=== PATIENT | female | born 1955 | race Caucasian/White ===

== ENCOUNTER 2016-08-23 09:16 | Outpatient (CLI) | payer OTHER | END 2016-08-23 09:17 | disposition home or self-care (01) | DX: I51.7 Cardiomegaly (principal) ==

== ENCOUNTER 2018-04-19 06:04 | Day surgery (SDC) | payer OTHER ==
[2018-04-19] MEDS ORDERED: LACTATED RINGERS 1,000 ML IV ONE (06:50)
[2018-04-19] MEDS ORDERED: fentaNYL 250 MCG/5 ML VIAL IVP ONE (07:30)
[2018-04-19] MEDS ORDERED: MIDAZOLAM 2 MG/2 ML VIAL IVP ONE (07:30)
[2018-04-19 08:26] VITALS: BP 129/90
== END 2018-04-19 06:05 | disposition home or self-care (01) ==
LOC: SDS 06:04
PROVIDERS: ATTEND Internal Medicine Gastroenterology
PROC: 0DJD8ZZ Inspection of Lower Intestinal Tract, Via Natural or Artificial Opening Endoscopic (ICD-10-PCS; principal; 2018-04-19 07:30)
DX: Z12.11 Encounter for screening for malignant neoplasm of colon (principal); Z86.010 Personal history of colon polyps; I10 Essential (primary) hypertension; E78.5 Hyperlipidemia, unspecified; J45.909 Unspecified asthma, uncomplicated; R06.83 Snoring; K21.9 Gastro-esophageal reflux disease without esophagitis; F32.9 Major depressive disorder, single episode, unspecified; R73.03 Prediabetes; E66.01 Morbid (severe) obesity due to excess calories; Z68.41 Body mass index [BMI] 40.0-44.9, adult; J30.9 Allergic rhinitis, unspecified; Z79.84 Long term (current) use of oral hypoglycemic drugs; Z79.82 Long term (current) use of aspirin; Z87.891 Personal history of nicotine dependence; Z86.73 Personal history of transient ischemic attack (TIA), and cerebral infarction without residual deficits
CPT/HCPCS: 45378; J3010; J7120

== ENCOUNTER 2018-08-10 16:59 | Emergency (ER) | payer OTHER ==
[2018-08-10 17:14] VITALS: BP 148/93
--- NOTE | 2018-08-10 18:01 | XRAY Report ---
Reason: right wrist injury Procedure Date: 08/10/2018 Accession Number: [id number] / [id number] Procedure: XR - Wrist 3 View RT CPT Code: FULL RESULT: EXAM: RIGHT WRIST RADIOGRAPHY EXAM DATE: 08/10/2018 05:27 PM. CLINICAL HISTORY: Trauma, pain. COMPARISON: None. TECHNIQUE: 3 views. FINDINGS: Bones: Osteopenia. No definite acute fracture or other bone lesion. Thickening of fifth metacarpal base may be due to old fracture. Joints: Mild degenerative changes. No definite erosion. Soft Tissues: Unremarkable. IMPRESSION: No acute disease. RADIA
--- NOTE | 2018-08-10 18:04 | ED Physician Documentation ---
PD HPI Fall - Stated complaint Stated Complaint: R WRIST/L KNEE INJ - Chief complaint Chief Complaint: Ext Problem - History obtained from History obtained from: Patient - History of Present Illness Mechanism of injury: Tripped Fall distance: Standing position Where injury occurred: Home Timing - onset: Yesterday Injury(ies) location: Right Upper Extremity (wrist), Right - Additional information Additional information: The patient is a 63-year-old female who presents with right wrist pain. Yesterday she stumbled in her driveway and fell, impacting her right wrist on the pavement. She went down on her left knee, but denies any significant pain in her knee. She is right hand dominant. Tetanus status is up-to-date. Review of Systems Constitutional: denies: Fever Ears: denies: Tinnitus/ringing Nose: denies: Congestion Cardiac: denies: Chest pain / pressure Respiratory: denies: Dyspnea, Cough GI: denies: Abdominal Pain, Nausea, Vomiting : denies: Dysuria Skin: denies: Laceration (s) Musculoskeletal: reports: Joint pain (right wrist). 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 - Present Medications Home Medications: Ambulatory Orders Medication Instructions Recorded Confirmed Aspirin [Adult Aspirin] 81 mg PO 04/18/18 Atorvastatin [Lipitor] 10 mg 04/18/18 Cholecalciferol (Vitamin D3) 1,000 unit PO 04/18/18 [Vitamin D3] Fluticasone/Salmeterol [Advair 1 each IH 04/18/18 250-50 Diskus] Loratadine [Claritin] 10 mg PO 04/18/18 Pyridoxine HCl (Vitamin B6) 50 mg PO 04/18/18 [Pyridoxine HCl] metFORMIN [Glucophage] 500 mg PO ONCE 04/18/18 04/19/18 - Allergies Allergies/Adverse Reactions: Allergies Allergy/AdvReac Type Severity Reaction Status Date / Time Penicillins AdvReac Mild Unknown Verified 08/10/18 17:09 - Social History Does the pt smoke?: No Smoking Status: Never smoker PD ED PE NORMAL - Vitals Vital signs reviewed: Yes (Mild hypertension.) - General General: Alert and oriented X 3, Well developed/nourished - HEENT HEENT: Atraumatic - Neck Neck: No bony TTP, Other (Full cervical range of motion, without tenderness.) - Cardiac Cardiac: RRR - Respiratory Respiratory: No respiratory distress, Clear bilaterally - Abdomen Abdomen: Soft, Non tender - Back Back: No spinal TTP - Derm Derm: No rash - Extremities Extremities: No edema, No calf tenderness / cord, Other (There is ecchymosis on the volar aspect of the right wrist, with associated tenderness to palpation. There is no break in the integument. She is able to flex and extend the wrist and can supinate and pronate the forearm, with mild discomfort. Distal neurovascular is intact. The left knee demonstrates full range of motion without tenderness. There is no abrasion or ecchymosis.) - Neuro Neuro: Alert and oriented X 3, No motor deficit, No sensory deficit Results - Vitals Vitals: Oxygen O2 Source Room air - Rads (name of study) left wrist Radiology: Prelim report reviewed, EMP read contemporaneously, See rad report (Osteopenia. No definite acute fracture or other bone lesion.) PD MEDICAL DECISION MAKING - ED course Complexity details: reviewed results, re-evaluated patient, considered differential, d/w patient ED course: The patient's presentation is significant for contusion to her right wrist caused by falling the pavement. There is no evidence of fracture or dislocation on x-ray examination. I discussed with her the expected course of injury, symptomatic treatment and outpatient follow-up, as well as potentially worrisome signs or symptoms that should prompt reevaluation in the emergency department. Departure - Departure Disposition: 01 Home, Self Care Clinical Impression: Fall Qualifiers: Encounter type: initial encounter Qualified Code(s): W19.XXXA - Unspecified fall, initial encounter Contusion of right wrist Qualifiers: Encounter type: initial encounter Qualified Code(s): S60.211A - Contusion of right wrist, initial encounter Contusion of left knee Qualifiers: Encounter type: initial encounter Qualified Code(s): S80.02XA - Contusion of left knee, initial encounter Condition: Stable Instructions: ED Contusion Upper Ext Follow-Up: KAYLYNN Holman [Provider Group] Comments: Keep your right arm elevated as much the time as possible. Apply ice pack intermittently for the next 3 days. You can use Tylenol or ibuprofen if needed for discomfort. Follow-up with your primary physician if not improving within 2 weeks. Return to the emergency department if you develop markedly increasing pain or swelling, or otherwise worsening symptoms. Discharge Date/Time: 08/10/18 18:13
== END 2018-08-10 18:13 | disposition home or self-care (01) ==
LOC: ED 16:59
DX: S60.211A Contusion of right wrist, initial encounter (principal); S80.02XA Contusion of left knee, initial encounter; W01.0XXA Fall on same level from slipping, tripping and stumbling without subsequent striking against object, initial encounter; Y92.008 Other place in unspecified non-institutional (private) residence as the place of occurrence of the external cause; E78.00 Pure hypercholesterolemia, unspecified; E11.9 Type 2 diabetes mellitus without complications; Z79.84 Long term (current) use of oral hypoglycemic drugs; Z79.82 Long term (current) use of aspirin
CPT/HCPCS: 99282

== ENCOUNTER 2022-01-10 08:48 | Day surgery (SDC) | payer BC, MEDICARE, OTHER ==
[~2022-01-10 08:48] MED LIST: BUPIVACAINE 0.5% PF 30 ML VIAL ONE; CEFAZOLIN SODIUM IN 0.9 % NACL 2 GM/50 ML BAG IV ONE; LIDOCAINE 2%-EPI 1:100000 20 ML MDV ONE; ceFAZolin 1 GM VIAL ONE
[2022-01-10] MEDS ORDERED: LACTATED RINGERS 1,000 ML IV ONE ×2 (09:12→10:52)
[2022-01-10] MEDS ORDERED: ONDANSETRON 4 MG/2 ML VIAL IVP PRN ×2 (09:34→10:42)
[2022-01-10] MEDS ORDERED: METOCLOPRAMIDE 10 MG/2 ML VIAL IVP PRN (09:34)
[2022-01-10] MEDS ORDERED: ATROPINE ABBOJECT 1 MG/10 ML SYRINGE IVP PRN (09:34)
[2022-01-10] MEDS ORDERED: NALOXONE 0.4 MG/ML VIAL IVP PRN (09:34)
[2022-01-10] MEDS ORDERED: MORPHINE 2 MG/ML CARPUJECT IVP PRN (09:34)
[2022-01-10] MEDS ORDERED: ePHEDrine 50 MG/ML VIAL IVP PRN (09:34)
[2022-01-10] MEDS ORDERED: fentaNYL 100 MCG/2 ML VIAL IVP PRN (09:34)
[2022-01-10] MEDS ORDERED: HYDROmorphone 0.5 MG/0.5 ML SYRINGE IVP PRN (09:34)
--- NOTE | 2022-01-10 09:34 | ANESTHESIA ---
Pre-Anesthesia VS, & Labs - Diagnosis umbilical hernia - Procedure umbilical hernia repair Vital Signs: Temp Pulse Resp BP Pulse Ox 36.4 C L 76 14 173/99 H 97 01/10/22 09:02 01/10/22 09:02 01/10/22 09:02 01/10/22 09:02 01/10/22 09:02 Height: 5 ft Weight (kg): 91.3 kg Body Mass Index: 39.3 BMI Classification: Obese - NPO >8 hours Last Fluid Intake: sips with eras meds - Is Patient ?: No - Lab Results Current Lab Results: Laboratory Tests 01/10/22 09:09: POC Whole Bld Glucose 147 H Lab results reviewed: Yes Home Medications and Allergies Home Medications: Ambulatory Orders Acetaminophen [Tylenol Arthritis] 2 tab PO DAILY 12/31/21 Albuterol Sulfate [Proair Hfa Inhaler] 1 - 2 puffs INH Q4H PRN 12/31/21 Calcium 26/Vit D3/Magnesium 15 [Qkuckph-Qks-O3 Complx 167Mg Cp] 1 each PO DAILY 12/31/21 Coffee/Theanine/Superoxide Dis [Neuriva De-Stress Capsule] 1 each PO DAILY 12/31/21 Diclofenac Sodium [Voltaren Arthritis Pain] 1 applic TP ONCE PRN 12/31/21 Fluoxetine HCl [Prozac] 20 mg PO DAILY 12/31/21 Fluticasone [Flonase] 1 sprays KAYLYNN DAILY 12/31/21 Glucosamine/D3/Boswellia Natalia [Osteo Bi-Flex Tablet] 2 each PO DAILY 12/31/21 Inulin/Cholecalciferol (D3) [Fiber Gummies-Vitamin D3] 1 each PO DAILY 12/31/21 Multivit-Min/Iron/Folic/Lutein [Multivitamin Women 50 Plus Tab] 1 each PO DAILY 12/31/21 Omeprazole 20 mg PO DAILY 12/31/21 Turmeric/Turmeric Root Extract [Turmeric 450-50 mg Capsule] 1 each PO BID 12/31/21 Vit A/C/E/Zinc/Selenium/Copper [Vision Formula Tablet] 1 each PO DAILY 12/31/21 Zinc Gluconate [Zinc] 50 mg PO DAILY 12/31/21 Aspirin [Adult Aspirin] 81 mg PO DAILY 04/18/18 Atorvastatin [Lipitor] 20 mg PO QPM 04/18/18 Fluticasone/Salmeterol [Advair 250-50 Diskus] 1 each IH BID 04/18/18 Loratadine [Claritin] 10 mg PO DAILY 04/18/18 metFORMIN [Glucophage] 500 mg PO BID 04/18/18 Acetaminophen [Tylenol Arthritis] 2 tab PO DAILY 12/31/21 Albuterol Sulfate [Proair Hfa Inhaler] 1 - 2 puffs INH Q4H PRN 12/31/21 Calcium 26/Vit D3/Magnesium 15 [Akjmppl-Srj-O8 Complx 167Mg Cp] 1 each PO DAILY 12/31/21 Coffee/Theanine/Superoxide Dis [Neuriva De-Stress Capsule] 1 each PO DAILY 12/31/21 Diclofenac Sodium [Voltaren Arthritis Pain] 1 applic TP ONCE PRN 12/31/21 Fluoxetine HCl [Prozac] 20 mg PO DAILY 12/31/21 Fluticasone [Flonase] 1 sprays KAYLYNN DAILY 12/31/21 Glucosamine/D3/Boswellia Natalia [Osteo Bi-Flex Tablet] 2 each PO DAILY 12/31/21 Inulin/Cholecalciferol (D3) [Fiber Gummies-Vitamin D3] 1 each PO DAILY 12/31/21 Multivit-Min/Iron/Folic/Lutein [Multivitamin Women 50 Plus Tab] 1 each PO DAILY 12/31/21 Omeprazole 20 mg PO DAILY 12/31/21 Turmeric/Turmeric Root Extract [Turmeric 450-50 mg Capsule] 1 each PO BID 12/31/21 Vit A/C/E/Zinc/Selenium/Copper [Vision Formula Tablet] 1 each PO DAILY 12/31/21 Zinc Gluconate [Zinc] 50 mg PO DAILY 12/31/21 Allergies/Adverse Reactions: Allergies Allergy/AdvReac Type Severity Reaction Status Date / Time Penicillins AdvReac Mild Unknown Verified 08/10/18 17:09 Anes History & Medical History - Anesthetic History Anesthesia Complications: reports: No previous complications Family history of Anesthesia Complications: Denies Family history of Malignant Hyperthermia: Denies - Medical History Cardiovascular: reports: High cholesterol, Murmur Pulmonary: reports: Asthma Gastrointestinal: reports: GERD, Ulcers Urinary: reports: None Musculoskeletal: reports: Osteoarthritis Endocrine/Autoimmune: reports: Type 2 diabetes Skin: reports: Eczema Smoking Status: Never smoker History of Cancer?: No - Surgical History General: reports: Colonoscopy, Other Eyes Ears Nose Throat (EENT): reports: Tonsil/Adenoidectomy Gynecologic: reports: Hysterectomy Exam General: Alert, Oriented x3, Cooperative Dental: Poor dentition Mouth Openin Fingerbreadth Neck Mobility: Normal Mallampati classification: II Thyromental Distance: 4-6 cm Respiratory: Lungs clear, Normal breath sounds, No respiratory distress Cardiovascular: Regular rate Neurological: Normal speech Mental/Cognitive Status: Alert/Oriented X3, Normal for patient Cognitive Status: Within normal limits Plan Anesthesia Type: General Consent for Procedure(s) Verified and Reviewed: Yes Code Status: Attempt Resuscitation ASA classification: 3-Severe systemic disease Is this case an emergency?: No
[2022-01-10] MEDS ORDERED: PROPOFOL 200 MG/20 ML VIAL IVP ONE (09:36)
[2022-01-10] MEDS ORDERED: LIDOCAINE-MPF 2% 5 ML VIAL ONE (09:36)
[2022-01-10] MEDS ORDERED: fentaNYL 100 MCG/2 ML VIAL ONE (09:36)
[2022-01-10] MEDS ORDERED: MIDAZOLAM 2 MG/2 ML VIAL ONE (09:36)
[2022-01-10] MEDS ORDERED: LACTATED RINGERS 1,000 ML IV SCH (10:00)
[2022-01-10] MEDS ORDERED: BUPIVACAINE 0.5% PF 30 ML VIAL SUBQ ONE (10:21)
[2022-01-10] MEDS ORDERED: LIDOCAINE 1%-EPI 1:100000 20 ML MDV SUBQ ONE (10:21)
[2022-01-10] MEDS ORDERED: ceFAZolin 1 GM VIAL IR ONE (10:22)
--- NOTE | 2022-01-10 10:37 | OPERATIVE REPORT ---
Operative Report - General Procedure Date: 01/10/22 Planned Procedure: Umbilical hernia repair Pre-Op Diagnosis: Incarcerated and painful umbilical hernia Procedure Performed: Umbilical hernia repair Post Op Diagnosis: Incarcerated and painful umbilical hernia - Procedure Note Primary Surgeon: Jorge Anesthesia Provider: Rajni Anesthesia Technique: General LMA, Local Pathology: Hernia sac to pathology in formalin Estimated Blood Loss (mL): 5 Findings: 2.5 x 2 cm defect Complications: None apparent - Other Other Information/Narrative: After obtaining informed consent, the patient is brought to the operating room and placed in the supine position on the operating table. Following successful induction of general endotracheal anesthesia, appropriate padding of all bony prominences, and placement of appropriate monitors, the abdomen was prepped and draped in the standard surgical fashion. A timeout was held per scope protocol. All elements of the surgical safety checklist were followed before, during, and after the procedure. Following infiltration with local anesthetic to create a field block, an incision was created directly through the umbilicus and over the palpable and visible defect. This was carried through the skin and subcutaneous tissue. The umbilical tissue was then freed from the umbilical remnant for complete exposure to the hernia sack. The defect was noted to be approximately 2.5 cm in greatest dimension. The hernia sac itself was approximately 10 cm. The hernia sac was carefully dissected free from the overlying skin and underlying fascial tissue as well as the surrounding areolar tissue. The contents of the sac were eased back into the abdominal cavity. The surgeon's finger was then inserted into the defect and the anterior abdominal wall palpated internally to be sure there was enough space for mesh placement. We elected to repair the defect with an 8 cm a portion of Ventralux. The mesh was dipped in Ancef solution and into the defect. It was straightened and flattened in the preperitoneal space. Placement was checked and adjusted. Once we were satisfied it was ideal, the tails were trimmed and sewn to the fascia anteriorly with prolene suture and the mesh secured to the edges of the defect with Vicryl suture. The wound was checked for hemostasis and irrigated with Ancef containing solution The umbilicus was reconstructed with interrupted Vicryl suture. The incision was closed in layers with Vicryl and Monocryl suture and Dermabond was applied to the skin. All sponge, needle, and instrument counts were correct at the conclusion of the case. The patient was allowed awaken from anesthesia without difficulty and taken to the postanesthesia care unit in good condition.
[2022-01-10] MEDS ORDERED: SUGAMMADEX 200 MG/2 ML VIAL IVP ONE (10:40)
[2022-01-10] MEDS ORDERED: KETOROLAC 30 MG/ML VIAL ONE (10:40)
[2022-01-10] MEDS ORDERED: oxyCODONE 5 MG TABLET PO PRN (10:42)
[2022-01-10] MEDS ORDERED: IBUPROFEN 600 MG TABLET PO PRN (10:42)
[2022-01-10] MEDS ORDERED: ACETAMINOPHEN 325 MG TABLET PO PRN (10:42)
[2022-01-10] MEDS ORDERED: ALBUTEROL 8 GM INHALER INH ONE (10:58)
[2022-01-10 12:51] VITALS: BP 129/78
--- NOTE | 2022-01-10 15:38 | ANESTHESIA POST OP EVALUATION ---
Anesthesia Post Eval - Post Anesthesia Eval Vitals: Last Vital Signs Temp 37 C 01/10/22 12:06 Pulse 93 01/10/22 12:50 Resp 12 01/10/22 12:50 BP 129/78 01/10/22 12:50 Pulse Ox 92 01/10/22 12:50 CV Function Including HR & BP: Stable Pain Control: Satisfactory Nausea & Vomiting: Negative Mental Status: Baseline Respiratory Status: Airway Patent Hydration Status: Satisfactory Anesthesia Complications: None
== END 2022-01-10 08:49 | disposition home or self-care (01) ==
LOC: SDS 08:48
PROVIDERS: ATTEND Surgery
PROC: 0WUF0JZ Supplement Abdominal Wall with Synthetic Substitute, Open Approach (ICD-10-PCS; principal; 2022-01-10 10:30)
DX: K42.0 Umbilical hernia with obstruction, without gangrene (principal); E11.9 Type 2 diabetes mellitus without complications; J45.909 Unspecified asthma, uncomplicated; E66.9 Obesity, unspecified; Z68.39 Body mass index [BMI] 39.0-39.9, adult; Z79.84 Long term (current) use of oral hypoglycemic drugs
CPT/HCPCS: 49587; A9270; C1781; J0690; J7120

== ENCOUNTER 2022-05-28 21:37 | Emergency (ER) | payer BC, MEDICARE, OTHER ==
[2022-05-28 21:48] VITALS: BP 127/75
[2022-05-28] MEDS ORDERED: TETANUS/DIPHTHERIA/PERTUSSIS 0.5 ML SYRINGE IM ONE (21:57)
--- NOTE | 2022-05-28 22:00 | ED Physician Documentation ---
PD HPI UPPER EXT INJURY - Stated complaint Stated Complaint: RT POINTER FINGER LAC - Chief complaint Chief Complaint: Laceration - History obtained from History obtained from: Patient - Additonal information Additional information: Patient is a 67-year-old female presenting for evaluation of fingertip injury to right pointer finger that occurred just prior to arrival. She was cutting onions on a mandolin when she excellently sliced her finger. She takes a baby aspirin but denies other blood thinner use. She denies injuries elsewhere. She is unsure of her last tetanus.Bleeding is controlled with pressure. 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 HEENT: Tonsil/Adenoidectomy - Present Medications Home Medications: Ambulatory Orders Medication Instructions Recorded Confirmed Aspirin [Adult Aspirin] 81 mg PO DAILY 04/18/18 01/10/22 Atorvastatin [Lipitor] 20 mg PO QPM 04/18/18 01/10/22 Fluticasone/Salmeterol [Advair 1 each IH BID 04/18/18 01/10/22 250-50 Diskus] Loratadine [Claritin] 10 mg PO DAILY 04/18/18 01/10/22 metFORMIN [Glucophage] 500 mg PO BID 04/18/18 01/10/22 Acetaminophen [Tylenol Arthritis] 2 tab PO DAILY 12/31/21 01/10/22 Albuterol Sulfate [Proair Hfa 1 - 2 puffs INH Q4H PRN 12/31/21 01/10/22 Inhaler] Calcium 26/Vit D3/Magnesium 15 1 each PO DAILY 12/31/21 01/10/22 [Wdmuznd-Vkm-G0 Complx 167Mg Cp] Coffee/Theanine/Superoxide Dis 1 each PO DAILY 12/31/21 01/10/22 [Neuriva De-Stress Capsule] Diclofenac Sodium [Voltaren 1 applic TP ONCE PRN 12/31/21 12/31/21 Arthritis Pain] Fluoxetine HCl [Prozac] 20 mg PO DAILY 12/31/21 01/10/22 Fluticasone [Flonase] 1 sprays KAYLYNN DAILY 12/31/21 01/10/22 Glucosamine/D3/Boswellia Natalia 2 each PO DAILY 12/31/21 01/10/22 [Osteo Bi-Flex Tablet] Inulin/Cholecalciferol (D3) [Fiber 1 each PO DAILY 12/31/21 01/10/22 Gummies-Vitamin D3] Multivit-Min/Iron/Folic/Lutein 1 each PO DAILY 12/31/21 01/10/22 [Multivitamin Women 50 Plus Tab] Omeprazole 20 mg PO DAILY 12/31/21 01/10/22 Turmeric/Turmeric Root Extract 1 each PO BID 12/31/21 01/10/22 [Turmeric 450-50 mg Capsule] Vit A/C/E/Zinc/Selenium/Copper 1 each PO DAILY 12/31/21 01/10/22 [Vision Formula Tablet] Zinc Gluconate [Zinc] 50 mg PO DAILY 12/31/21 01/10/22 Docusate Sodium 100Mg Capsule 200 mg PO DAILY #30 cap 01/10/22 [Colace 100Mg Capsule] Ondansetron Odt [Zofran Odt] 4 mg TL Q6H PRN #10 tablet 01/10/22 oxyCODONE [Roxicodone] 5 mg PO Q4-6H PRN #20 tablet 01/10/22 - Allergies Allergies/Adverse Reactions: Allergies Allergy/AdvReac Type Severity Reaction Status Date / Time Penicillins AdvReac Mild Unknown Verified 05/28/22 21:48 - Social History Does the pt smoke?: No Smoking Status: Never smoker PD ED PE NORMAL - General General: Alert and oriented X 3, No acute distress, Well developed/nourished - HEENT HEENT: Atraumatic - Respiratory Respiratory: No respiratory distress - Derm Derm: Warm and dry - Extremities Extremities: Other (Half centimeter Wound to fingertip pad Of right pointer finger ; Normal range of motion at all joints, brisk cap refill) PD ED PE EXPANDED - Extremities RAJENDRA UE/Hands Visual: 1 - abrasion Results - Vitals Vitals: Vital Signs - 24 hr 05/28/22 21:46 Temperature 36 C L Heart Rate 90 Respiratory 18 Rate Blood Pressure 127/75 O2 Saturation 95 Oxygen O2 Source Room air Procedures - Laceration (location) Right second digit Length in cm: 0.5 Wound type: Irregular, Clean Neurovascular status: Sensory intact, Motor intact, Vascular intact Tendon involvement: Tendon intact Wound preparation: Hibiclens, Irrigated copiously NS Skin layer closure: Dermabond Other: Patient tolerated well, No complications, Neurovascular intact, Dressing applied, Tetanus booster given PD MEDICAL DECISION MAKING - ED course ED course: Patient with wound to right fingertip pad. Skin was taken off by corazon and there is nothing to suture back together. I did clean the wound and applied a thin layer of Dermabond over the wound with a sterile dressing. Patient counseled on wound care as well as concerning symptoms to return for. Tetanus was updated. No signs of bone or tendon involvement. Departure - Departure Disposition: 01 Home, Self Care Clinical Impression: Finger laceration Qualifiers: Encounter type: initial encounter Finger: index finger Damage to nail status: without damage Foreign body presence: without foreign body Laterality: right Qualified Code(s): S61.210A - Laceration without foreign body of right index finger without damage to nail, initial encounter Condition: Stable Instructions: ED Laceration Ext Skin Glue Comments: You have a deep abrasion to your right finger. I have placed skin glue over the wound and we have also placed a dressing. Please keep the dressing on for the next 24 to 48 hours. After that you should be able to remove the dressing and I would just make sure to keep the wound clean and dry. Take caution with the wound as It is healing. If you have any new or concerning symptoms such as bleeding, increased pain, redness or abnormal drainage please return to the ER. You were given a tetanus booster also today. Discharge Date/Time: 05/28/22 22:14
== END 2022-05-28 22:14 | disposition home or self-care (01) ==
LOC: ED 21:37
DX: S61.210A Laceration without foreign body of right index finger without damage to nail, initial encounter (principal); W27.4XXA Contact with kitchen utensil, initial encounter; Y93.G1 Activity, food preparation and clean up
CPT/HCPCS: 12001; 90471; 99283

== ENCOUNTER 2022-12-02 12:16 | Outpatient (CLI) | payer MEDICARE, OTHER ==
--- NOTE | 2022-12-02 16:47 | MRI Report ---
PROCEDURE: KNEE WO - LT INDICATIONS: KNEE PAIN TECHNIQUE: Noncontrast sagittal PD fast spin echo and T2 fast spin echo with fat saturation, sagittal 3-D gradie nt sequence with fat saturation; coronal T1 spin echo and PD fast spin echo with fat saturation, and axial PD fast spin echo with fat saturation through the knee. COMPARISON: None. FINDINGS: Image quality: Excellent. Menisci: Linear oblique high T2 signal intensity within the inner, middle, and peripheral thirds of t he medial meniscal body, demonstrating inferior articular surface extension, indicating oblique teari ng. Lateral meniscus is intact. Cruciate ligaments: The anterior and posterior cruciate ligaments appear intact. Medial structures: The medial collateral ligament appears intact. Visualized portions of the pes ans erinus tendons appear normal. There is a small amount of medial bursal fluid. Lateral structures: The lateral collateral ligament, long and short heads of the biceps femoris tend on appear intact. The popliteus tendon appears normal. Iliotibial band appears normal. Anterior structures: The quadriceps and patellar tendons appear intact. Patellar alignment is kayode l. No femoral trochlear dysplasia or ventral trochlear prominence. No edema in the infrapatellar fa t pad. Bones and cartilage: No bone marrow contusions or fractures. There is moderate tricompartment periar ticular osteophyte formation. Moderate degree cartilage loss diffusely overlies the weightbearing asp ects of the medial femoral condyle and medial tibial plateau. Severe articular cartilage loss overlie s the medial patellar facet and patellar apex. Joint space: There is a moderate knee joint effusion and a small Jones's cyst. Normal appearing syn ovial plicae are incidentally noted. IMPRESSION: 1. Tricompartmental osteoarthritis with associated articular cartilage loss. 2. Medial meniscal tearing. 3. Knee joint effusion and Jones's cyst. 4. Medial bursitis. Reviewed by: Karen Pressley MD on 12/02/2022 4:45 PM PDT Approved by: Karen Pressley MD on 12/02/2022 4:45 PM PDT Station ID: [id number]
== END 2022-12-02 12:17 | disposition home or self-care (01) ==
LOC: DI 12:16
PROVIDERS: ATTEND Family Medicine
DX: M17.12 Unilateral primary osteoarthritis, left knee (principal); S83.242A Other tear of medial meniscus, current injury, left knee, initial encounter; M25.462 Effusion, left knee; M71.22 Synovial cyst of popliteal space [Baker], left knee

== ENCOUNTER 2022-12-13 08:00 | Outpatient (CLI) | payer BC, MEDICARE, OTHER ==
--- NOTE | 2022-12-13 13:45 | XRAY Report ---
PROCEDURE: Knee 4 View LT INDICATIONS: LEFT KNEE PAIN TECHNIQUE: 4 views of the left knee(s) were acquired. COMPARISON: Left knee MRI 12/02/2022. FINDINGS: Bones: No fractures or dislocations. Mild joint space narrowing at the medial compartment. Osteophy tosis at the lateral and patellofemoral compartments. No suspicious bony lesions. Moderate degenerati ve change in the right knee. Soft tissues: No knee joint effusion. No suspicious soft tissue calcifications or masses. IMPRESSION: Left knee moderate lateral and patellofemoral compartment DJD. Bicompartmental Kellgren-Ashish scale of osteoarthritis: Grade 3: moderate osteoarthritis. Reviewed by: Carlos Martinez MD on 12/13/2022 1:37 PM PDT Approved by: Carlos Martinez MD on 12/13/2022 1:37 PM PDT Station ID: [id number]
== END 2022-12-13 23:59 | disposition home or self-care (01) ==
LOC: DI.WOS 08:00
PROVIDERS: ATTEND Orthopaedic Surgery
DX: M17.12 Unilateral primary osteoarthritis, left knee (principal)

== ENCOUNTER 2023-05-01 05:56 | Day surgery (SDC) | payer MEDICARE, OTHER ==
[2023-05-01] MEDS ORDERED: PROPOFOL 500 MG/50 ML 500 MG/50 ML VIAL ONE (06:48)
--- NOTE | 2023-05-01 07:01 | ANESTHESIA ---
Pre-Anesthesia VS, & Labs - Diagnosis screening - Procedure colonoscopy Vital Signs: Temp Pulse Resp BP Pulse Ox O2 Flow Rate 36 C L 95 15 167/92 H 95 05/01/23 06:20 05/01/23 06:20 05/01/23 06:20 05/01/23 06:20 05/01/23 06:20 Height: 5 ft Weight (kg): 86.7 kg Body Mass Index: 37.3 BMI Classification: Obese - NPO >8 hours - Is Patient ?: No - Lab Results Current Lab Results: Laboratory Tests 05/01/23 06:38: POC Whole Bld Glucose 123 H Lab results reviewed: Yes Home Medications and Allergies Home Medications: Ambulatory Orders Calcium Carbonate [Calcium] 600 mg PO DAILY 04/27/23 Fluticasone Propion/Salmeterol [Wixela 250-50 Inhub] 1 puffs INH BID 04/27/23 Lisinopril [Zestril] 10 mg PO DAILY 04/27/23 Meloxicam 15 mg PO DAILY PRN 04/27/23 [place]-3/Dha/Epa/Fish Oil/Krill [Megared Advanced 4-in-1 Ex Str] 1 each PO DAILY 04/27/23 Pyridoxine [Vitamin B-6] 100 mg PO DAILY 04/27/23 Vitamin B Complex 1 each PO DAILY 04/27/23 Aspirin [Adult Aspirin] 81 mg PO DAILY 04/18/18 Atorvastatin [Lipitor] 20 mg PO QPM 04/18/18 Loratadine [Claritin] 10 mg PO DAILY 04/18/18 metFORMIN [Glucophage] 500 mg PO BID 04/18/18 Acetaminophen [Tylenol Arthritis] 2 tab PO DAILY 12/31/21 Albuterol Sulfate [Proair Hfa Inhaler] 1 - 2 puffs INH Q4H PRN 12/31/21 Calcium 26/Vit D3/Magnesium 15 [[id number] Complx 167Mg Cp] 1 each PO DAILY 12/31/21 Diclofenac Sodium [Voltaren Arthritis Pain] 1 applic TP ONCE PRN 12/31/21 Fluoxetine HCl [Prozac] 20 mg PO DAILY 12/31/21 Fluticasone [Flonase] 1 sprays KAYLYNN DAILY 12/31/21 Glucosamine/D3/Boswellia Natalia [Osteo Bi-Flex Tablet] 2 each PO DAILY 12/31/21 Inulin/Cholecalciferol (D3) [Fiber Gummies-Vitamin D3] 1 each PO DAILY 12/31/21 Omeprazole 20 mg PO DAILY 12/31/21 Turmeric/Turmeric Root Extract [Turmeric 450-50 mg Capsule] 1 each PO BID 12/31/21 Vit A/C/E/Zinc/Selenium/Copper [Vision Formula Tablet] 1 each PO DAILY 12/31/21 Calcium Carbonate [Calcium] 600 mg PO DAILY 04/27/23 Fluticasone Propion/Salmeterol [Wixela 250-50 Inhub] 1 puffs INH BID 04/27/23 Lisinopril [Zestril] 10 mg PO DAILY 04/27/23 Meloxicam 15 mg PO DAILY PRN 04/27/23 [place]-3/Dha/Epa/Fish Oil/Krill [Megared Advanced 4-in-1 Ex Str] 1 each PO DAILY 04/27/23 Pyridoxine [Vitamin B-6] 100 mg PO DAILY 04/27/23 Vitamin B Complex 1 each PO DAILY 04/27/23 Allergies/Adverse Reactions: Allergies Allergy/AdvReac Type Severity Reaction Status Date / Time Penicillins AdvReac Mild Unknown Verified 05/28/22 21:48 Anes History & Medical History - Anesthetic History Anesthesia Complications: reports: No previous complications Family history of Anesthesia Complications: Denies Family history of Malignant Hyperthermia: Denies - Medical History Cardiovascular: reports: Hypertension, High cholesterol Pulmonary: reports: Asthma Gastrointestinal: reports: GERD, Ulcers Urinary: reports: Frequency Neuro: reports: TIA Musculoskeletal: reports: Osteoarthritis Endocrine/Autoimmune: reports: Type 2 diabetes Blood Disorders: reports: None Skin: reports: None Smoking Status: Never smoker Psychosocial: reports: No issues indicated - Surgical History General: reports: Colonoscopy, Other Eyes Ears Nose Throat (EENT): reports: Tonsil/Adenoidectomy Gynecologic: reports: Hysterectomy Exam General: Alert, Oriented x3, Cooperative Dental: WNL Mouth Openin Fingerbreadth Neck Mobility: Normal Mallampati classification: II Thyromental Distance: 4-6 cm Respiratory: Lungs clear Cardiovascular: Regular rate Plan Anesthesia Type: General, MAC Consent for Procedure(s) Verified and Reviewed: Yes Code Status: Attempt Resuscitation ASA classification: 3-Severe systemic disease Is this case an emergency?: No
[2023-05-01] MEDS ORDERED: GLYCOPYRROLATE 1 MG/5 ML VIAL ONE (07:32)
[2023-05-01] MEDS ORDERED: LACTATED RINGERS 1,000 ML IV ONE (07:57)
[2023-05-01 08:39] VITALS: BP 160/87; O2SAT 98
--- NOTE | 2023-05-01 13:37 | ANESTHESIA POST OP EVALUATION ---
Anesthesia Post Eval - Post Anesthesia Eval Vitals: Last Vital Signs Temp 36.4 C L 05/01/23 08:15 Pulse 72 05/01/23 08:30 Resp 16 05/01/23 08:30 BP 160/87 H 05/01/23 08:30 Pulse Ox 98 05/01/23 08:30 O2 Flow Rate CV Function Including HR & BP: Stable Pain Control: Satisfactory Nausea & Vomiting: Negative Mental Status: Baseline Respiratory Status: Airway Patent Hydration Status: Satisfactory Anesthesia Complications: None
== END 2023-05-01 05:57 | disposition home or self-care (01) ==
LOC: SDS 05:56
PROVIDERS: ATTEND Surgery
PROC: 0DBN8ZX Excision of Sigmoid Colon, Via Natural or Artificial Opening Endoscopic, Diagnostic (ICD-10-PCS; principal; 2023-05-01 07:30)
DX: Z12.11 Encounter for screening for malignant neoplasm of colon (principal); K63.5 Polyp of colon; E11.9 Type 2 diabetes mellitus without complications; J45.909 Unspecified asthma, uncomplicated; E66.01 Morbid (severe) obesity due to excess calories; I10 Essential (primary) hypertension; Z68.37 Body mass index [BMI] 37.0-37.9, adult; Z79.84 Long term (current) use of oral hypoglycemic drugs; Z87.891 Personal history of nicotine dependence
CPT/HCPCS: 45380; J7120

== ENCOUNTER 2023-05-09 08:19 | Outpatient (CLI) | payer MEDICARE, OTHER ==
--- NOTE | 2023-05-09 10:17 | DEXA Report ---
PROCEDURE: Dexa Spine and/or Hip INDICATIONS: POST MENOPAUSAL TECHNIQUE: Dual energy x-ray absorptiometry (DXA) was performed on a [employer] System. Regions measur ed are the AP Spine, femoral neck, and if needed forearm. COMPARISON: None FINDINGS: Lumbar Spine: Bone Mineral Density of 1.16 to g/cm/cm,T score -0.2. Left Femoral Neck: Bone Mineral Density 0.818 g/cm/cm, T score -1.6. Left Hip: Bone Mineral Density 1.005 g/cm/cm,T score 0. (T score greater or equal to -1.0: NORMAL) (T score from -1.1 to -2.4: OSTEOPENIA) (T score less than or equal to -2.5 to: OSTEOPOROSIS) Impression: By WHO criteria, this patient has low bone density (osteopenia). Patients with diagnosis of osteoporosis or osteopenia should have regular bone mineral density assess ment. For those eligible for Medicare, routine testing is allowed once every 2 years. Testing frequ ency can be increased for patients who have rapidly progressing disease or for those who are receivin g medical therapy to restore bone mass. Reviewed by: Ron Odom on 05/09/2023 10:15 AM PDT Approved by: Ron Odom on 05/09/2023 10:15 AM PDT Station ID: [id number]
== END 2023-05-09 08:20 | disposition home or self-care (01) ==
LOC: DI 08:19
PROVIDERS: ATTEND Student in an Organized Health Care Education/Training Program
DX: M85.88 Other specified disorders of bone density and structure, other site (principal); Z78.0 Asymptomatic menopausal state

== ENCOUNTER 2023-09-19 08:00 | Outpatient (CLI) | payer MEDICARE, OTHER ==
--- NOTE | 2023-09-19 13:35 | XRAY Report ---
PROCEDURE: Knee 4 View LT INDICATIONS: LEFT KNEE PAIN TECHNIQUE: 4 views of the knee(s) were acquired. COMPARISON: Knee x-ray 12/13/2022 FINDINGS: Bones: No fractures or dislocations. No suspicious bony lesions. There is moderate tricompartment al arthritic change within the left knee most severe medially. Tricompartmental moderate arthritic ch anges are present within the right knee most severe medially. Particular osteophytes are present. No erosions. Soft tissues: No knee joint effusion. No suspicious soft tissue calcifications or masses. IMPRESSION: Tricompartmental arthritic changes within the left knee stable compared to prior exam. Reviewed by: Harriet Mcneill MD on 09/19/2023 1:34 PM PST Approved by: Harriet Mcneill MD on 09/19/2023 1:34 PM PST Station ID: [id number]
== END 2023-09-19 23:59 | disposition home or self-care (01) ==
LOC: DI.WOS 08:00
PROVIDERS: ATTEND Orthopaedic Surgery
DX: M17.12 Unilateral primary osteoarthritis, left knee (principal)

== ENCOUNTER 2023-11-16 11:48 | Outpatient (CLI) | payer MEDICARE, OTHER ==
[2023-11-16 17:43] LABS: BASOPHILS # (AUTO) 0.1 10^3/uL (0.0-0.1); BASOPHILS % (AUTO) 1.2 %; EOSINOPHILS # (AUTO) 0.3 10^3/uL (0.0-0.7); HCT - HEMATOCRIT 42.9 % (37.0-47.0); HGB - HEMOGLOBIN 13.7 g/dL (12.0-16.0); LYMPHOCYTES # (AUTO) 2.6 10^3/uL (1.5-3.5); LYMPHOCYTES % (AUTO) 29.9 %; MEAN CORPUSCULAR HEMOGLOBIN 29.4 pg (27.0-31.0); MEAN CORPUSCULAR HGB CONC 31.9 g/dL (32.0-36.0); MEAN CORPUSCULAR VOLUME 92.1 fL (81.0-99.0); MEAN PLATELET VOLUME 9.6 fL (7.9-10.8); MONOCYTES # (AUTO) 0.7 10^3/uL (0.0-1.0); MONOCYTES % (AUTO) 7.6 %; NEUTROPHILS % (AUTO) 57.9 %; PLT - PLATELET COUNT 438 10^3/uL (130-450); RED BLOOD COUNT 4.66 10^6/uL (4.20-5.40); RED CELL DISTRIBUTION WIDTH 14.5 % (12.0-15.0); WHITE BLOOD COUNT 8.6 x10^3/uL (4.8-10.8)
[2023-11-16 17:56] LABS: ALBUMIN 4.6 g/dL (3.2-5.5); ALBUMIN/GLOBULIN RATIO 1.7 (1.0-2.2); BILIRUBIN,TOTAL 0.5 mg/dL (0.2-1.0); CALCIUM 10.8 mg/dL (8.5-10.3); CREATININE 0.5 mg/dL (0.6-1.3); POTASSIUM 4.3 mmol/L (3.5-4.5); TOTAL PROTEIN 7.3 g/dL (6.4-8.9)
== END 2023-11-16 11:49 | disposition home or self-care (01) ==
LOC: LAB.N 11:48
PROVIDERS: ATTEND Orthopaedic Surgery
DX: M17.12 Unilateral primary osteoarthritis, left knee (principal)
CPT/HCPCS: 36415; 80053; 85025

== ENCOUNTER 2023-11-20 14:32 | Outpatient (CLI) | payer MEDICARE, OTHER ==
--- NOTE | 2023-11-20 16:18 | Ultrasound Report ---
PROCEDURE: Soft Tissue Head or Neck INDICATIONS: THYROID NODULE TECHNIQUE: Real-time scanning was performed of the thyroid gland, with image documentation. COMPARISON: None FINDINGS: Right: Thyroid lobe measures 3.8 x 1.9 x 1.5 cm, and is homogeneous in echotexture. Left: Thyroid lobe measures 3.8 x 2.2 x 1.5 cm, and is homogenous in echotexture. Isthmus: Size cm thick. Right mid region nodule measures 1 x 1 x 0.8 cm. It is solid and isoechoic. TR 3. No dedicated follow -up necessary. Left superior region nodule measures 1.7 x 1.4 x 1.1 cm. It is solid and hypoechoic. TR 4. Sampling r ecommended. IMPRESSION: Sampling is recommended for the left superior region nodule. ACR TI-RADS definitions and recommendations: TI-RADS 1 (benign): 0 points. FNA not needed. TI-RADS 2 (not suspicious): 2 points. FNA not needed. TI-RADS 3 (mildly suspicious): 3 points. "FNA if 2.5 cm or larger, follow up if 1.5 cm or larger (at 1, 3, and 5 years). TI-RADS 4 (moderately suspicious): 4-6 points. "FNA if 1.5 cm or larger, follow up if 1 cm or larger (at 1, 2, 3, and 5 years). TI-RADS 5 (highly suspicious): 7 points or more. "FNA if 1 cm or larger, follow up if 0.5 cm or larger (every year for 5 years). Reviewed by: Tirso Hensley MD on 11/20/2023 4:16 PM PDT Approved by: Tirso Hensley MD on 11/20/2023 4:16 PM PDT Station ID: [id number]
== END 2023-11-20 14:33 | disposition home or self-care (01) ==
LOC: DI 14:32
PROVIDERS: ATTEND Student in an Organized Health Care Education/Training Program
DX: E04.2 Nontoxic multinodular goiter (principal)

== ENCOUNTER 2023-11-22 06:07 | Day surgery (SDC) | payer MEDICARE, OTHER ==
[2023-11-22] MEDS: LACTATED RINGERS 1,000 ML IV ONE (06:17)
[2023-11-22] MEDS ORDERED: DEXAMETHASONE 10 MG/ML VIAL ONE (06:18)
[2023-11-22] MEDS ORDERED: ceFAZolin 2 GM VIAL ONE (06:18)
[2023-11-22] MEDS: CELECOXIB 100 MG CAPSULE PO ONE (06:35)
[2023-11-22] MEDS: ACETAMINOPHEN 500 MG TABLET PO ONE (06:35)
[2023-11-22] MEDS ORDERED: VANCOMYCIN 1 GM VIAL ONE (06:56)
[2023-11-22] MEDS ORDERED: BUPIVACAINE 0.25% PF 30 ML VIAL ONE (06:56)
[2023-11-22] MEDS ORDERED: fentaNYL 100 MCG/2 ML VIAL ONE ×2 (07:10→10:05)
[2023-11-22] MEDS ORDERED: PROPOFOL 500 MG/50 ML 500 MG/50 ML VIAL ONE (07:10)
[2023-11-22] MEDS ORDERED: MIDAZOLAM 2 MG/2 ML VIAL ONE (07:10)
[2023-11-22] MEDS ORDERED: IPRATROPIUM/ALBUTEROL 3 ML NEB INH PRN (07:32)
--- NOTE | 2023-11-22 07:36 | ANESTHESIA ---
Pre-Anesthesia VS, & Labs - Diagnosis L knee OA - Procedure L knee arthroplasty Vital Signs: Temp Pulse Resp BP Pulse Ox O2 Flow Rate 36.2 C L 90 16 113/71 95 11/22/23 06:26 11/22/23 06:26 11/22/23 06:26 11/22/23 06:26 11/22/23 06:26 Height: 5 ft Weight (kg): 87.1 kg Body Mass Index: 37.5 BMI Classification: Obese - NPO >8 hours - Is Patient ?: No - Lab Results Current Lab Results: Laboratory Tests 11/22/23 07:02: POC Whole Bld Glucose 143 H Home Medications and Allergies Home Medications: Ambulatory Orders Cholecalciferol [Vitamin D3] 25 mcg PO DAILY 11/16/23 Diclofenac Sodium 1% Gel [Voltaren Gel] 1 applic TOP PRN PRN 11/16/23 Fluticasone Propion/Salmeterol [Wixela 250-50 Inhub] 1 puffs INH BID 11/16/23 Active Medications Albuterol/Ipratropium (Ipratropium/Albuterol 3 Ml Neb) 3 ml INH Q4HR PRN PRN Reason: Wheezing Aspirin [Adult Aspirin] 81 mg PO DAILY 04/18/18 Atorvastatin [Lipitor] 20 mg PO QPM 04/18/18 Loratadine [Claritin] 10 mg PO DAILY PRN 04/18/18 metFORMIN [Glucophage] 1,000 mg PO BID 04/18/18 Acetaminophen [Tylenol Arthritis] 2 tab PO DAILY 12/31/21 Albuterol Sulfate [Proair Hfa Inhaler] 1 - 2 puffs INH Q4H PRN 12/31/21 Fluticasone [Flonase] 1 sprays KAYLYNN DAILY 12/31/21 Omeprazole 20 mg PO DAILY 12/31/21 Turmeric/Turmeric Root Extract [Turmeric 450-50 mg Capsule] 1 each PO DAILY 12/31/21 Lisinopril [Zestril] 5 mg PO DAILY 04/27/23 [place]-3/Dha/Epa/Fish Oil/Krill [Megared Advanced 4-in-1 Ex Str] 1 each PO DAILY 04/27/23 Vitamin B Complex 1 each PO DAILY 04/27/23 Cholecalciferol [Vitamin D3] 25 mcg PO DAILY 11/16/23 Diclofenac Sodium 1% Gel [Voltaren Gel] 1 applic TOP PRN PRN 11/16/23 Fluticasone Propion/Salmeterol [Wixela 250-50 Inhub] 1 puffs INH BID 11/16/23 Allergies/Adverse Reactions: Allergies Allergy/AdvReac Type Severity Reaction Status Date / Time Penicillins AdvReac Mild Unknown Verified 05/28/22 21:48 Anes History & Medical History - Anesthetic History Anesthesia Complications: reports: No previous complications Family history of Anesthesia Complications: Denies Family history of Malignant Hyperthermia: Denies - Medical History Cardiovascular: reports: Hypertension, High cholesterol Pulmonary: reports: Asthma, Shortness of breath, Other (Lung nodules on CT, pending diagnosis) Gastrointestinal: reports: GERD, Ulcers Urinary: reports: Frequency Neuro: reports: CVA Musculoskeletal: reports: Osteoarthritis Endocrine/Autoimmune: reports: Type 2 diabetes Blood Disorders: reports: None Skin: reports: None Smoking Status: Never smoker Psychosocial: reports: Alcohol History of Cancer?: No - Surgical History General: reports: Colonoscopy, Other Eyes Ears Nose Throat (EENT): reports: Tonsil/Adenoidectomy Gynecologic: reports: Hysterectomy Exam General: Alert, Oriented x3, Cooperative Dental: Poor dentition, Other (missing multiple teeth) Mouth Openin Fingerbreadth Neck Mobility: Normal Mallampati classification: II Thyromental Distance: less than 4 cm Respiratory: Decreased breath sounds, Wheezing, Expiration Cardiovascular: Regular rate Plan Anesthesia Type: General, Spinal, Adductor Block Regional Block: Per Surgeon's request for Post Op pain control Consent for Procedure(s) Verified and Reviewed: Yes Code Status: Attempt Resuscitation ASA classification: 3-Severe systemic disease Is this case an emergency?: No
[2023-11-22] MEDS ORDERED: fentaNYL 100 MCG/2 ML VIAL IVP PRN (07:42)
[2023-11-22] MEDS ORDERED: ePHEDrine 50 MG/ML VIAL IVP PRN (07:42)
[2023-11-22] MEDS ORDERED: ATROPINE ABBOJECT 1 MG/10 ML SYRINGE IVP PRN (07:42)
[2023-11-22] MEDS ORDERED: NALOXONE 0.4 MG/ML VIAL IVP PRN (07:42)
[2023-11-22] MEDS ORDERED: ONDANSETRON 4 MG/2 ML VIAL IVP PRN ×2 (07:42→10:41)
[2023-11-22] MEDS ORDERED: MORPHINE 2 MG/ML CARPUJECT IVP PRN (07:42)
[2023-11-22] MEDS: IPRATROPIUM/ALBUTEROL 3 ML NEB INH ONE (07:47)
[2023-11-22] MEDS ORDERED: LACTATED RINGERS 1,000 ML IV SCH (08:00)
[2023-11-22] MEDS ORDERED: TRANEXAMIC ACID 1,000 MG/10 ML VIAL ONE (08:08)
[2023-11-22] MEDS ORDERED: PHENYLEPHRINE HCL 0.5 MG/5 ML AMPULE ONE ×3 (08:12→08:27)
[2023-11-22] MEDS: VANCOMYCIN 1 GM VIAL MC ONE (08:41)
[2023-11-22] MEDS: HYDROGEN PEROXIDE 3% 473 ML BOTTLE TOP ONE ×2 (08:41)
[2023-11-22] MEDS: BUPIVACAINE 0.25% PF 30 ML VIAL SUBQ ONE (08:42)
[2023-11-22] MEDS ORDERED: PROPOFOL 200 MG/20 ML VIAL IVP ONE (09:39)
--- NOTE | 2023-11-22 10:30 | OPERATIVE REPORT ---
Operative Report - General Procedure Date: 11/22/23 Planned Procedure: Left total knee replacement Pre-Op Diagnosis: Varus osteoarthritis left knee Procedure Performed: Left total knee replacement using [employer]hew journey 2 Antibiotic cemented: #3 Oxinium posterior cruciate retaining femoral component, #1 primary tibial baseplate, 10 mm standard tibial bearing, 23 mm biconvex patella Post Op Diagnosis: Same as preoperative diagnosis - Procedure Note Primary Surgeon: Andre Perez MD Secondary Surgeon: Raul Garcia MD, Annmarie HUYNH Anesthesia Provider: Gemma Finch CRNA Anesthesia Technique: Spinal Estimated Blood Loss (mL): 100 Indications: This is a 68-year-old woman with chronic left knee pain, generalized with weightbearing, less with rest. She has tried nonoperative treatment. Despite previous treatment over the past few years, she remains symptomatic with activities of daily living and also difficulty doing any prolonged walking activity. She has a mild varus alignment, joint line tenderness medial and lateral, no flexion contracture. Her x-rays show marked narrowing of the medial joint space, varus alignment, osteophytes, patellofemoral osteophytes. She has been evaluated by primary care. She has signed informed consent at the office agreeing to a left total knee replacement at [facility] as outpatient Findings: The cruciate ligaments are intact. Her menisci were intact. There is nonspecific synovitis about the knee joint. There is complete loss of articular cartilage to the medial compartment with osteophytes. There is patellofemoral joint had marked articular cartilage loss and large osteophytes. The lateral compartment was relatively spared, partial thickness loss. Complications: None - Other Other Information/Narrative: The patient was brought to the operating room and was placed in a supine position. A pneumatic tourniquet was applied to the proximal left thigh over cast padding. This was a conical shaped Xiomara thigh tourniquet that was sterile. A bump was placed on the operating room table to facilitate knee flexion of the left knee during surgery. The left lower extremity was prepped and draped in a sterile manner in the usual fashion. A timeout procedure was performed by the entire operating room team and all were in agreement. A midline longitudinal incision was made with the knee in flexion. A medial parapatellar arthrotomy was made. The anterior horn of medial and lateral menisci were released and part of patellar fat pad was excised. The knee was flexed and the patella was dislocated laterally. A drill hole was made in the intramedullary notch with a 9.5 mm drill. Osteophytes about the proximal tibia and femur had been removed with a rondure. The distal femoral cutting guide was aligned parallel to the posterior condyles. The intramedullary kaushal and guide was advanced and the distal femoral guide was stabilized with half pins. The distal 5 degrees valgus cut was made through the distal femoral guide. Next the extra medullary tibial guide was assembled and applied and aligned to the mechanical axis in both sagittal and coronal planes. Tibial referencing was done to allow 3 mm of bone from the most affected side and 9 mm from the least affected side. The tibial guide was stabilized with half pins. Retractors were placed medially and laterally to protect the collateral ligaments and a retractor was placed directly against the posterior bone to sublux the tibia anteriorly. An oscillating saw was used to make the tibial proximal cut. The tibial block was removed as a single piece and the menisci were removed as well. The extension gap was assessed with a extension block spacer using a 10 mm spacer and this was found to fit well as well as the 9 mm spacer block with the knee in 90 degrees of flexion. Next the femoral positioning guide was applied and aligned to the epicondylar axis and [place] line. This was secured in place with approximately 3 degrees of external rotation. The size of the femur at the anterior lateral trochlea was a #3. Drill holes were made in the 5 and 1 #3 cutting block was inserted and secured. The 5 cuts were made to the captured block using oscillating saw. The flexion gap was assessed with the 10 mm spacer and was found to fit well. The patella was then prepared. A biconvex patellar reamer was used. The tibial trial #1 was then applied to the tibia and aligned to the mechanical axis. The punch fin was utilized. Trial reduction was performed with the femoral and tibial components in place. Notch resection was then through the trial component. Pulsatile lavage was performed. A tourniquet was applied during the cementing process. The components were inserted sequenti ally: Tibia, femur and lastly patellar component. Excess cement was removed and the knee was placed in extension during the hardening. Dilute Betadine irrigation was performed. The knee had full range of motion, good patellar tracking. There was good stability of the knee in full extension mid flexion and 90 degrees of flexion. There was good alignment of the left knee. The tourniquet had been deflated and had been in place for 23 minutes. Hemostasis was achieved with electrocautery. The deep closure was performed with #2 Ethibond proximal and distal to the patella with the knee in 40 degrees of flexion. #1 Stratofix suture was then used to close the arthrotomy incision. 2-0 Stratofix was used to close the subcutaneous tissue. 3-0 Monocryl was used to do a subcuticular skin closure. Dermabond was applied to the skin incision. After the Dermabond had hardened, a silver impregnated dressing was applied. She tolerated the procedure well and received 2 g of Ancef intravenously and 2 g of tranxamic acidA physician patient care assistant was medically necessary to help with prepping and draping, positioning, protection of vital structures, assistance during the procedure including wound closure, dressing and/or splinting.
[2023-11-22] MEDS: LACTATED RINGERS 100 ML IV ONE (10:39)
[2023-11-22] MEDS ORDERED: fentaNYL 250 MCG/5 ML VIAL IVP PRN (10:41)
[2023-11-22] MEDS ORDERED: DOCUSATE SODIUM 100 MG CAPSULE PO PRN (10:41)
[2023-11-22] MEDS ORDERED: SODIUM CHLORIDE FLUSH 0.9% 10 ML SYRINGE IVP PRN (10:41)
[2023-11-22] MEDS ORDERED: HYDROmorphone 1 MG/ML CARPUJECT ONE (10:52)
[2023-11-22] MEDS: HYDROmorphone 0.5 MG/0.5 ML SYRINGE IVP PRN (10:56)
--- NOTE | 2023-11-22 11:10 | XRAY Report ---
PROCEDURE: Knee 2V LT INDICATIONS: post operative imaging TECHNIQUE: 2 views of the knee(s) were acquired. COMPARISON: X-ray knee 09/19/2023 FINDINGS: Postoperative changes reflecting knee arthroplasty. Hardware is intact. There is good anatomic alignm ent. Postoperative soft tissue changes are present. IMPRESSION: Status post knee arthroplasty. Reviewed by: Harriet Mcneill MD on 11/22/2023 11:09 AM PDT Approved by: Harriet Mcneill MD on 11/22/2023 11:09 AM PDT Station ID: [id number]
[2023-11-22] MEDS: NS W/20 MEQ KCL 1,000 ML IV SCH (11:47)
[2023-11-22] MEDS: ceFAZolin (2G) 2 GM in SODIUM CHLORIDE 0.9% MINIBAG 100 ML IV SCH (11:48)
[2023-11-22] MEDS: ACETAMINOPHEN 500 MG TABLET PO SCH (11:58)
[2023-11-22] MEDS: traMADol 50 MG TABLET PO SCH (11:58)
[2023-11-22] MEDS: PHENYLEPHRINE 20 MG in SODIUM CHLORIDE 0.9% 248 ML IV ONE (11:59)
[2023-11-22] MEDS ORDERED: ALBUTEROL NEB 2.5 MG/3 ML INH PRN (12:08)
[2023-11-22] MEDS: dexAMETHasone 4 MG TABLET PO ONE (12:09)
--- NOTE | 2023-11-22 13:08 | PHARMACY PROGRESS NOTE ---
- Best Possible Medication History Admit Date and Time: Processed by: Pharmacy Medications reviewed in ED?: No Medication History completed: Yes Patient Interview: Completed Secondary Source(s): Insurance records (MELOXICAM ON FILL HX - PATIENT DOES NOT TAKE.) As the person ultimately responsible for medication therapy, providers are able to order a medication from an existing home medication list in [facility] via the "Reconcile Routine" prior to Confirmation of that medication by director decision support. Such practice is discouraged except when the physician, in their clinical judgment, deems that a medical need exists for a medication without regard to previous use.
--- NOTE | 2023-11-22 13:12 | ANESTHESIA POST OP EVALUATION ---
Anesthesia Post Eval - Post Anesthesia Eval Vitals: Last Vital Signs Temp 36.5 C 11/22/23 11:50 Pulse 97 11/22/23 11:50 Resp 20 11/22/23 11:50 BP 128/64 11/22/23 11:50 Pulse Ox 97 11/22/23 11:50 O2 Flow Rate 2 11/22/23 10:41 CV Function Including HR & BP: Stable Pain Control: Satisfactory Nausea & Vomiting: Negative Mental Status: Baseline Respiratory Status: Airway Patent Hydration Status: Satisfactory Anesthesia Complications: None
[2023-11-22] MEDS: oxyCODONE 5 MG TABLET PO PRN (13:38)
[2023-11-22 13:44] VITALS: O2SAT 95
[2023-11-22 16:56] VITALS: BP 136/90
[2023-11-22] MEDS ORDERED: SODIUM CHLORIDE FLUSH 0.9% 10 ML SYRINGE IVP SCH (17:00)
[2023-11-22] MEDS ORDERED: ethyl alcohoL 62% SWAB AMPULE NAS SCH (21:00)
[2023-11-22] MEDS ORDERED: metFORMIN 500 MG TABLET PO SCH (21:00)
[2023-11-22] MEDS ORDERED: CELECOXIB 100 MG CAPSULE PO SCH (21:00)
[2023-11-22] MEDS ORDERED: ASPIRIN EC 81 MG TABLET PO SCH (21:00)
[2023-11-23] MEDS ORDERED: PANTOPRAZOLE 40 MG TABLET PO SCH (07:00)
[2023-11-23] MEDS ORDERED: ATORVASTATIN 10 MG TABLET PO SCH (21:00)
== END 2023-11-22 15:13 | disposition home or self-care (01) ==
LOC: SDS 06:07 → MS2 10:45 → SDS 15:13
PROVIDERS: ATTEND Orthopaedic Surgery
DX: M17.12 Unilateral primary osteoarthritis, left knee (principal); M21.162 Varus deformity, not elsewhere classified, left knee; I10 Essential (primary) hypertension; E11.9 Type 2 diabetes mellitus without complications; J45.909 Unspecified asthma, uncomplicated; E66.01 Morbid (severe) obesity due to excess calories; Z68.38 Body mass index [BMI] 38.0-38.9, adult; Z79.84 Long term (current) use of oral hypoglycemic drugs; Z87.891 Personal history of nicotine dependence
CPT/HCPCS: 27447; 73560; 94640; 97110; 97162; 97166; A9270; C1713; J1170; J2372; J3370; J7120

== ENCOUNTER 2023-12-29 13:03 | Outpatient (CLI) | payer MEDICARE, OTHER ==
--- NOTE | 2023-12-29 15:07 | XRAY Report ---
PROCEDURE: Knee 4+V LT INDICATIONS: LEFT TOTAL KNEE REPLACEMENT TECHNIQUE: 4 views of the knee(s) were acquired. COMPARISON: X-ray knee 11/22/2023 FINDINGS: Bones: No fractures or dislocations. No suspicious bony lesions. Left knee arthroplasty. Hardware is intact without evidence of hardware fracture or periprosthetic lucency to suggest loosening. Righ t knee demonstrates mild tricompartmental arthritic change most severe medially. Minimal particular o steophytes. No erosions. Soft tissues: Moderate knee joint effusion. No suspicious soft tissue calcifications or masses. IMPRESSION: Stable appearance of left knee arthroplasty. Reviewed by: Harriet Mcneill MD on 12/29/2023 3:05 PM PDT Approved by: Harriet Mcneill MD on 12/29/2023 3:05 PM PDT Station ID: [id number]
== END 2023-12-29 13:04 | disposition home or self-care (01) ==
LOC: DI 13:03
PROVIDERS: ATTEND Orthopaedic Surgery
DX: Z96.652 Presence of left artificial knee joint (principal)

== ENCOUNTER 2024-02-20 09:47 | Outpatient (CLI) | payer MEDICARE, OTHER ==
[2024-02-20 10:02] LABS: HCT - HEMATOCRIT 39.9 % (37.0-47.0); HGB - HEMOGLOBIN 12.4 g/dL (12.0-16.0); MEAN CORPUSCULAR HEMOGLOBIN 27.4 pg (27.0-31.0); MEAN CORPUSCULAR HGB CONC 31.1 g/dL (32.0-36.0); MEAN CORPUSCULAR VOLUME 88.1 fL (81.0-99.0); MEAN PLATELET VOLUME 8.8 fL (7.9-10.8); RED BLOOD COUNT 4.53 10^6/uL (4.20-5.40); RED CELL DISTRIBUTION WIDTH 15.3 % (12.0-15.0); WHITE BLOOD COUNT 8.8 x10^3/uL (4.8-10.8)
[2024-02-20 10:15] LABS: CREATININE 0.5 mg/dL (0.6-1.3); CRP - C-REACTIVE PROTEIN < 0.5 mg/dL (<0.5); GFR - MDRD 123 (>89)
== END 2024-02-20 09:48 | disposition home or self-care (01) ==
LOC: LAB 09:47
PROVIDERS: ATTEND Orthopaedic Surgery
DX: T81.41XA Infection following a procedure, superficial incisional surgical site, initial encounter (principal)
CPT/HCPCS: 36415; 82565; 85027; 85651; 86140

== ENCOUNTER 2024-02-21 12:19 | Outpatient (CLI) | payer MEDICARE, OTHER ==
[2024-02-21] MEDS ORDERED: iohexoL-300 150 ML BOTTLE ONE (12:20)
[2024-02-21] MEDS: iohexoL-300 150 ML BOTTLE IVP ONE (12:55)
--- NOTE | 2024-02-21 21:40 | CT Report ---
PROCEDURE: IVP INDICATIONS: HYDRONEPHROSIS CONTRAST: Omni 300 140ml TECHNIQUE: A [address] of the abdomen and pelvis was performed. Non-contrast and contrast images were recorded and evaluated at appropriate window settings. Images were recorded and evaluated at appropriate windo w settings. Reformats: coronal and sagittal. For radiation dose reduction, the following was used: au tomated exposure control, adjustment of mA and/or kV according to patient size. COMPARISON: Relations dated with overlapping portions of chest CT, 11/17/2023. FINDINGS: Image quality: Diagnostic. Lower chest: Unremarkable. Liver: No solid mass. A central liver cyst is seen. Gallbladder: Within normal limits. Biliary tree: No intrahepatic or extrahepatic dilation, accounting for age. Spleen: No splenomegaly. Pancreas: No pancreatic ductal dilation. Adrenals: No adrenal nodule. Kidneys and ureters: Both kidneys are normal in size. No hydronephrosis or nephrolithiasis on pre-con trast images. No solid masses or complex cysts which require follow up. Numerous peripelvic cysts ca n be seen on each side, left more numerous than right. The opacified renal calyces and ureters appear normal, without filling defect. Stomach, bowel and peritoneum: No bowel distension. No pathologic free fluid. A normal appendix is se en. Abdominal Lymph nodes: No central or retroperitoneal adenopathy. Vessels: Unremarkable. Patent portal vein. Reproductive organs: Unremarkable. Bladder: No abnormal wall thickening, accounting for underdistention. No calcified bladder stones. No filling defect within the opacified bladder. Pelvic Lymph nodes: Unremarkable. Bones: There is a remote T12 anterior wedge deformity. Focal lower lumbar spine degenerative changes are seen, with milder degenerative changes seen elsewhere. No adnexal masses are seen on either side. Convex Other: None. IMPRESSION: Numerous peripelvic cysts can be seen, left more prominent than right. No hydronephrosis is seen on either side. No nephrolithiasis or filling defects within the opacified renal collecting systems or ureters. No significant bladder abnormality is seen. Additional findings: Remote T12 anterior wedge deformity Focal lower lumbar spine degenerative change Reviewed by: Antonio Mascorro MD on 02/21/2024 8:38 PM AKJUANA Approved by: Antonio Mascorro MD on 02/21/2024 8:38 PM AKJUANA Station ID: [id number]
== END 2024-02-21 12:20 | disposition home or self-care (01) ==
LOC: DI 12:19
PROVIDERS: ATTEND Urology
DX: N13.30 Unspecified hydronephrosis (principal); N28.1 Cyst of kidney, acquired

== ENCOUNTER 2024-04-17 10:43 | Outpatient (CLI) | payer MEDICARE, OTHER ==
--- NOTE | 2024-04-17 13:13 | Ultrasound Report ---
PROCEDURE: Extremity Soft Tissue Limited INDICATIONS: L BICEP NODULE TECHNIQUE: Real-time scanning was performed of the left upper arm, with image documentation. COMPARISON: None. FINDINGS: Focused ultrasound examination of medial aspect of mid left upper arm shows a solid mass in soft tiss ue measures 2.2 x 1.4 x 1.8 cm in size and show internal vascularity. No definite underlying muscle i nvolvement is seen. IMPRESSION: 2.2 x 1.4 x 1.8 cm solid mass in mid upper arm soft tissue concerning for soft tissue ne oplasm of indeterminant nature. Consider excision or biopsy for more definitive diagnosis. Reviewed by: Dylan Mcleod MD on 04/17/2024 1:12 PM PDT Approved by: Dylan Mcleod MD on 04/17/2024 1:12 PM PDT Station ID: [id number]
== END 2024-04-17 10:44 | disposition home or self-care (01) ==
LOC: DI 10:43
DX: R22.32 Localized swelling, mass and lump, left upper limb (principal)